=== PATIENT | female | born 1985 | race American Indian/Alaskan Native ===

== ENCOUNTER 2025-01-23 11:22 | Emergency (ER) | payer MEDICAID ==
[2025-01-23] MEDS ORDERED: Lidocaine 2% with EPINEPHrine 1:100,000 20 ML MDV INFILT ONE (11:23)
== END 2025-01-23 12:50 | disposition home or self-care (01) ==
LOC: FB.ED 11:22
DX: S71.111A Laceration without foreign body, right thigh, initial encounter (principal); S81.811A Laceration without foreign body, right lower leg, initial encounter; Z88.8 Allergy status to other drugs, medicaments and biological substances; Y04.8XXA Assault by other bodily force, initial encounter; Y93.89 Activity, other specified
CPT/HCPCS: 12002; 12004; 99283; 99284